=== PATIENT | male | born 1990 | race African-American/Black ===

== ENCOUNTER 2023-11-15 11:01 | Emergency (ER) | payer MEDICAID, OTHER ==
[~2023-11-15] VITALS: Ht 165.1 cm; Wt 75.3 kg
[2023-11-15 12:08] VITALS: BP 131/90; PULSE 92; RESP 16; TEMP 97.4; O2SAT 98
[2023-11-15] MEDS ORDERED: NAPR-746 PO (12:20)
[2023-11-15] MEDS: IBUPROFEN 800 MG TAB PO ONE (12:25)
== END 2023-11-15 12:34 | disposition home or self-care (01) ==
LOC: ER 11:01
DX: S63.92XA Sprain of unspecified part of left wrist and hand, initial encounter (principal); X50.0XXA Overexertion from strenuous movement or load, initial encounter; Y93.89 Activity, other specified; Y92.89 Other specified places as the place of occurrence of the external cause; Y99.8 Other external cause status
CPT/HCPCS: 73130